=== PATIENT | male | born 1940 | race Caucasian/White ===

== ENCOUNTER 2023-10-05 14:22 | Outpatient (OUT) | payer OTHER, SELFPAY ==
--- NOTE | 2023-10-05 14:27 | MR_ITS ---
[place] [id number] Patient Name: HERBERTH SOLIS MRN: [id number] date: 1940 Sex: M Assigned Patient Location: MRI Current Patient Location: MRI Accession/Order Number: [id number] Exam Date: 10/05/2023 14:45 Report Date: 10/05/2023 15:42 At the request of: TEDDY VIVAS Procedure: MR lumbar spine wo con EXAM: MRI of the lumbar spine without IV gadolinium contrast. REASON FOR EXAM: Lower back pain, bilateral leg pain and weakness COMPARISON: None FINDINGS: No lumbar spine fractures, acute malalignment or acute abnormal marrow signal. No spinal canal mass, hematoma or fluid collection. Lumbar spine degenerative changes, most advanced at the L3-L4 level with prominent associated endplate degenerative changes. L3-L4, L4-5 and L5-S1 posterior disc protrusions. Changes of prior L3-L4 laminectomies. 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 Severe L3-L4 spinal canal stenosis. Moderate L4-5 spinal canal stenosis. Stenosis of the lateral recesses bilaterally at the L5-S1 level. Mild right L2-L3 neural foraminal stenosis. Moderate right L3-L4 neural foraminal stenosis. Moderate to severe right L4-5 and L5-S1 neural foraminal stenoses. Mild left L2-L3 neural foraminal stenosis. Moderate left L3-L4 neural foraminal stenosis. Moderate to severe left L4-5 and L5-S1 neural foraminal stenoses. Remainder unremarkable. MR/MR lumbar spine wo con IMPRESSION: 1. Severe L3-L4 spinal canal stenosis. 2. Moderate L4-5 spinal canal stenosis. 3. Mild to moderate L2-L3 spinal canal stenosis. 4. Moderate to severe bilateral L4-5 and L5-S1 neural foraminal stenoses. Electronically authenticated by: NADINE GRAHAM Date: 10/05/2023 15:42
== END 2023-10-05 14:23 | disposition home or self-care (01) ==
LOC: MRI 14:22
PROVIDERS: PCP Physician Assistant; Visit Provider Family Medicine
DX: M54.50 Low back pain, unspecified (principal); R53.1 Weakness; M48.061 Spinal stenosis, lumbar region without neurogenic claudication
CPT/HCPCS: 72148

== ENCOUNTER 2024-11-29 16:50 | Emergency (ER) | payer OTHER, SELFPAY ==
[2024-11-29 16:56] VITALS: BP 135/76; PULSE 77; O2SAT 95; BMI 29.3
--- NOTE | 2024-11-29 18:31 | ED.GENADUL1 ---
HPI HPI - General Adult General Chief complaint: Extremity Injury, Lower Stated complaint: left leg pain Time Seen by Provider: 11/29/24 16:53 Source: patient Mode of arrival: Wheelchair Limitations: no limitations History of Present Illness HPI narrative: Patient presents to ED complaining of left leg pain and decreased ability to use it or weight-bear on it. Patient states he was trying to climb up into a high truck. He put his left leg on the running board and grabbed the handle and tried to pull himself up however he was not strong enough to pull himself all the way into the truck. He kind of got stuck with his leg on the running board holding onto the handle and was just hanging there putting all of his pressure onto that left leg. He does have a history of bilateral foot drop worse on the left and wears braces on both legs. He did not fall or twist himself he did not fall out of the truck his son was able to run around the side of the truck and pushed him into the truck and help him sit down. This happened on Wednesday. Since then he has had pain behind the knee and behind the lower part of the hamstring. He said the pain really only happens mostly when he is trying to bear weight on it. It does not really hurt him too bad to bend or straighten the leg. No hip pain no back pain. He said his shoulder was a little bit sore from trying to hold onto the handle but he said that is improving. He does have home health care that comes in and helps him out during the day and she has been putting ice on his hamstring as well as doing some massaging and gentle stretching. He said it has been slightly improving since Wednesday but he still has trouble bearing weight and he has been shuffling his gait so they were concerned. He does have a walker at home that he uses and he said he does not usually get up and walk anywhere without somebody with him. Related Data Allergies Allergy/AdvReac Type Severity Reaction Status Date / Time phenobarbital AdvReac Intermediate Hallucinati Verified 11/29/24 17:02 ng Opioid HPI Opioid Management Most Recent Opioid Data: No Data to Display Review of Systems ROS Status of ROS 10 or more systems reviewed and unremarkable except as noted in history and below PFSH PFSH Social History Little interest or pleasure in doing things: not at all Feeling down, depressed, or hopeless: not at all Exam Narrative Exam Narrative: General: alert, no acute distress Cardiovascular: regular rate and rhythm, normal peripheral perfusion. Respiratory: Lungs CTA, respirations non labored. Extremities: no deformity, no trauma. Chronic foot drop bilateral lower extremities. Mild tenderness to palpation in the lower hamstring and behind the knee. No calf tenderness or evidence of swelling or blood clot. Pain with weightbearing on the left leg no pain with flexion or extension. Neurological: oriented x 4, LOC appropriate for age. Constitutional Vital Signs, click to edit/add: Last Vital Signs Pulse 77 11/29/24 16:56 Resp 18 11/29/24 16:56 BP 135/76 11/29/24 16:56 Pulse Ox 95 11/29/24 16:56 O2 Del Method Room Air 11/29/24 16:56 Course Vital Signs Vital signs: Vital Signs Pulse Rate 77 11/29/24 16:56 Respiratory Rate 18 11/29/24 16:56 Blood Pressure 135/76 11/29/24 16:56 Pulse Oximetry 95 11/29/24 16:56 Oxygen Delivery Method Room Air 11/29/24 16:56 Pulse Rate 77 11/29/24 16:56 Respiratory Rate 18 11/29/24 16:56 Blood Pressure 135/76 11/29/24 16:56 Pulse Oximetry 95 11/29/24 16:56 Oxygen Delivery Method Room Air 11/29/24 16:56 Medical Decision Making [facility] Narrative Medical decision making narrative: Patient did not have any major trauma or fall therefore I did not think plain films would be very useful. I did CT lower extremity which did show some soft tissue swelling and joint effusion. No bony abnormality. Radiology suggest MRI nonemergent. I spoke with the patient about following up with Ortho, [facility] so he said he will get in with his family doctor through [facility] and get his referral there. I did give him a referral to Dr. Nix if he is unable to get in anywhere else. He said his primary doctor office already knew he was coming in for this evaluation and they wanted the results. We printed the CT scan results for him. Return to ED if worsening symptoms fevers shortness of breath chest pain or anything else that is concerning otherwise follow-up outpatient with family doctor and orthopedic. Patient is comfortable with care plan for home continue conservative home care as he has been doing. Differential Diagnosis Differential Diagnosis: Fracture sprain strain muscle tear Imaging Data ct leg: Attestation: I have reviewed the pertinent imaging results. Discharge Plan Discharge Chief Complaint: Extremity Injury, Lower Clinical Impression: Hamstring strain Patient Disposition: Home, Self-Care Time of Disposition Decision: 18:23 Condition: Good Mode of Transportation: Private Vehicle Print Language: Lao Instructions: Hamstring Injury (ED) Referrals: TEDDY VIVAS [Primary Care Provider] - 1 week Gurdeep Nix MD [Physician] - 1 week
== END 2024-11-29 18:44 | disposition home or self-care (01) ==
PROVIDERS: Emergency Provider Emergency Medicine; PCP Family Medicine
DX: S76.812A Strain of other specified muscles, fascia and tendons at thigh level, left thigh, initial encounter (principal); X50.1XXA Overexertion from prolonged static or awkward postures, initial encounter; M21.372 Foot drop, left foot; M21.371 Foot drop, right foot
CPT/HCPCS: 73700; 99284